=== PATIENT | female | born 1950 | race Caucasian/White ===

== ENCOUNTER → 2025-07-14 14:02 | Outpatient (REF) | payer MEDICARE, OTHER, SELFPAY | LOC: RAD 14:02 | PROVIDERS: ATTENDING PHYSICIAN Internal Medicine Critical Care Medicine; FAMILY PHYSICIAN Family Medicine | DX: R91.8 Other nonspecific abnormal finding of lung field (principal) | CPT/HCPCS: 71250 ==

== ENCOUNTER 2025-08-25 06:06 | Day surgery (SDC) | payer MEDICARE, OTHER, SELFPAY ==
[2025-08-18 12:29] VITALS: BMI 30.9
[2025-08-18 14:32] LABS: Hematocrit 44.1 % (37.0-47.0); Hemoglobin 14.6 g/dL (12.0-16.0); Mean Corp Hgb Conc. 33.1 g/dL (33.0-37.0); Mean Corpuscular Volume 94.2 fL (81.0-99.0); Platelet Count 245 10^3/uL (130-400); Red Cell Dist. Width 12.6 % (11.5-14.5)
[2025-08-18 14:43] LABS: INR 0.99; PT 13.4 Sec (11.4-14.6)
[2025-08-18 14:44] LABS: APTT 28.9 Sec (23.4-35.0)
[2025-08-18 14:57] LABS: Blood Urea Nitrogen 10 mg/dl (7-17); Calcium 9.2 mg/dl (8.4-10.2); Carbon Dioxide 27 mmol/L (22-30); Chloride 104 mmol/L (98-107); Estimated Creatinine Clearance 83 ml/min; Glucose 99 mg/dl (70-99); Potassium 4.6 mmol/L (3.5-5.1); Sodium 137 mmol/L (135-145); eGFR > 60.00
[2025-08-25] VITALS (10 sets, daily range): BP systolic 96–143; BP diastolic 62–78; BMI 30.9
[2025-08-25] MEDS: VENTOLIN NEBULES 2.5 MG INH (07:43)
== END 2025-08-25 11:37 | disposition home or self-care (01) ==
LOC: SDS 06:06
PROVIDERS: ATTENDING PHYSICIAN Internal Medicine Critical Care Medicine; FAMILY PHYSICIAN Family Medicine
DX: R91.1 Solitary pulmonary nodule (principal); R93.89 Abnormal findings on diagnostic imaging of other specified body structures
CPT/HCPCS: 31629; 36415; 71045; 76000; 80048; 85027; 85610; 85730; 87070; 87102; 87116; 87205; 88112; 88173; 88305; 88333; 94640; C1887